=== PATIENT | female | born 1955 | race Caucasian/White ===

== ENCOUNTER 2016-06-22 01:53 | Inpatient (IN) | payer OTHER ==
[~2016-06-22] VITALS: Ht 170.2 cm; Wt 74.8 kg
[~2016-06-22 01:53] MED LIST: OMEPRAZOLE40 M1 PO
--- NOTE | 2016-06-22 14:22 | Admission Core Measures ---
Admission Meds I reviewed the following Meds: Current Medications Sig/Avery Start time Last Medication Dose Stop Time Status Admin Acetaminophen 975 MG ONCE 06/22 NR (Tylenol) 06/22 2358 Cefazolin Sodium 2,000 MG ONCE 06/22 NR (Kefzol-Ancef Inj) 06/22 2358 Oxycodone HCl 10 MG ONCE 06/22 NR (Roxicodone) 06/22 2358 Acute Coronary Syndrome Inclusion Criteria ACS Diagnosis No Inpatient Core Measures LDL Reminder: If No, please order W/I first 24hr of stay Congestive Heart Failure Inclusion Criteria CHF Diagnosis No Cerebrovascular accident Inclusion Criteria CVA/TIA Diagnosis No Inpatient Core Measures Bedside Swallow Eval Reminder: If BSE failed, place ST order Antithrombotic Reminder: Order Antithrombotic Medication by end of day 2 Antithrombotic Reminder: Document Reason Antithrombotic Not ordered by end of day 2 AFIB/Flutter Reminder: If Present, add to problem list AFIB/Flutter Reminder: Order Anticoag Medication for pts with AFIB/Flutter Atherosclerosis Reminder: If Present, add to problem list LDL Reminder: If No, please order W/I first 24hr of stay PT Order Reminder: If No, please order Venous thromboembolism Inpatient Core Measures VTE Risk Factors: Age > 40, Surgery No [facility] VTE prophylaxis d/t No contraindications No VTE Pharm Prophylaxis d/t No contraindications Inclusion Criteria - Per Current guidelines, there needs to be overlap - treatment for the first 5 days of Warfarin therapy. - Parenteral Anticoagulation (IV or SC) needs to be - given along with Warfarin therapy. VTE Diagnosis No VTE Type NONE VTE Confirmed by (Test) NONE Problem List As ranked by this Provider includes Assessment & Plan 1. Status post total replacement of right hip HOME MEDS Home Med List Omeprazole 40 MG CAPSULE.DR Hardy CAP PO EVERY OTHER GERD (Reported)
[2016-06-22] MEDS ORDERED: ASPIRIN EC325 M2 PO (14:34)
[2016-06-22] MEDS ORDERED: DILAUDID2 M1 PO (14:34)
[2016-06-22] MEDS ORDERED: MS CONTIN15 M2 PO (14:34)
[2016-06-22] MEDS ORDERED: COLACE100 M1 PO (14:34)
[2016-06-22] MEDS ORDERED: MIRALAX17 G1 PO (14:34)
--- NOTE | 2016-06-22 14:40 | Patient Discharge Instructions ---
Discharge Instructions General Discharge Information You were seen/treated for: Right hip DJD/osteoarthritis You had these procedures: Revision of right total hip replacement Watch for these problems: Fever greater than 101, excessive drainage from the wound, and inability to bear weight on the operative side Call Surgeon to remove: Susana Do not soak the wound: Yes Daily wet to dry dressings: No No bath, but you may shower: Yes Other wound care: Dry dressing change once daily starting postoperative day #2. You may shower as desired. No baths. No ointments of any kind. Ice as needed for comfort. Diet Continue normal diet: Yes Recommended Diet: Regular Activity Full Activity/No Limits: No Activity Self Limited: Yes Pounds, do NOT lift more than: 5 Activity Limited to: Weight bear as tolerated Other activity limits: Avoid strenuous activity. You may ambulate as desired with rolling walker and progressed per PT recommendations. No driving while using narcotics and until cleared by M.D. Acute Coronary Syndrome Inclusion Criteria At DC or during hospital stay patient has or had the following: ACS DIAGNOSIS No Discharge Core Measures Meds if any: Prescribed or Continued at Discharge Meds if any: NOT Prescribed or Continued at Discharge Congestive Heart Failure Inclusion Criteria At DC or during hospital stay patient has or had the following: CHF DIAGNOSIS No Discharge Core Measures Meds if any: Prescribed or Continued at Discharge Meds if any: NOT Prescribed or Continued at Discharge Cerebrovascular accident Inclusion Criteria At DC or during hospital stay patient has or had the following: CVA/TIA Diagnosis No Discharge Core Measures Meds if any: Prescribed or Continued at Discharge Meds if any: NOT Prescribed or Continued at Discharge Venous thromboembolism Inclusion Criteria VTE Diagnosis No VTE Type NONE VTE Confirmed by (Test) NONE Discharge Core Measures - Per Current guidelines, there needs to be overlap - treatment for the first 5 days of Warfarin therapy. - If discharged on Warfarin prior to 5 days of - overlap therapy, the patient will need to be - assessed for post discharge needs including - *Post discharge parental anticoagulation - *Warfarin and/or parental anticoagulation education - *Follow up date to check INR post discharge At least 5 days overlap therapy as Inpatient No Meds if any: Prescribed or Continued at Discharge Note: Overlap Therapy is Warfarin and Anticoagulant Meds if any: NOT Prescribed or Continued at Discharge
--- NOTE | 2016-06-22 14:45 | Surg Short-stay <48hrs Dis Sum ---
Visit Information Visit Dates Admission Date: 06/22/16 Discharge Date: 06/24/16 Surgical Short Stay DC Summary Admission Diagnosis: Right hip DJD/osteoarthritis Final Diagnosis: Same Procedure(s): 06/22/2016 right revision total hip replacement Summary/Significant Findings: Patient was admitted to [facility] for elective surgery on 06/22/2016 and underwent revision right total hip replacement. The patient tolerated the procedure well, without complications. The postoperative course remained uneventful. Pain was well controlled with oral pain medication, tolerated a regular diet, and voiding without difficulty. The patient was evaluated by physical therapy during admission, was deemed stable from a medical standpoint, and was discharged. Condition at Discharge: Stable Discharge Disposition: home health services Discharge instructions provided to patient/family: Yes Post discharge follow-up plan: Incision: Dry dressing. May shower. No baths. No ointments of any kind. Ice as needed. Bowel regimen: Colace and or MiraLAX Weight-bearing as tolerated Follow-up with Dr. Barragan in 6 weeks. Call office for fevers greater than 101.5, excessive drainage or inability to bear weight on operative extremity. Visiting nurse will remove donny.
--- NOTE | 2016-06-22 16:59 | Operative Report ---
Operative/Inv Procedure Report Surgery Date: 06/22/16 Name of Procedure: Right total hip revision Pre-Operative Diagnosis: Chronic instability right hip Post-Operative Diagnosis: Same Estimated Blood Loss: 500 Surgeon/Maintenance Craftsman: OTTO ORTIZ,PEPE Moody Anesthesia: block Operative/Procedure Note Note: Description of Procedure: The patient was taken to the operating room and positively identified. After induction of spinal anesthesia and administration of appropriate pre-operative antibiotics, the patient was positioned supine on the operating room table and all bony prominences were well padded. After performing a surgical timeout, the right lower extremity was prepped and draped in the usual sterile fashion. A direct anterior approach was made to the right hip. The incision was carried sharply through superficial soft tissues to the level of the fascia. Meticulous hemostasis was maintained with Bovie electocautery. The fascia over the tensor fascia rhonda muscle was opened sharply and the interval between the TFL and the sartorius was entered bluntly taking care to stay lateral to the lateral femoral cutaneous nerve. Retractors were placed around the femoral neck and the pericapsular fat was identified. The ascending branches of the lateral femoral circumflex vessels were identified and carefully coagulated. The pericapsular fat and anterior capsule were then resected. The femoral neck was exposed as was the acetabular rim. The femoral head was then disimpacted from the trunnion. The dual mobility polyethylene liner was immediately noted to be posterior to the ruptured posterior capsule and was easily retrieved. Retained Ethibond suture was removed. The higher rim of the acetabular component was then exposed. The acetabular component was noted to be quite anteverted. Utilizing the appropriate La Fontaine instrument the MDM metal liner was removed. A single dome screw was also removed. Utilizing the [employer] motorized acetabular component removal system, the acetabulum was removed with a minimum of bony damage. The acetabular bed was then irrigated with sterile saline. We sequentially reamed to accept a 60 mm La Fontaine Trident tritanium hemispherical shell. This was impacted into place in the appropriate position. 3 screws were used for supplemental fixation. It was then fit with a 36 mm 0 eccentric X3 insert. The hip was then trialed with 36 millimeter +8 head. This yielded excellent stability and appropriate leg lengths. The trial head was removed and a new [employer] 36 mm +8 Oxinium head was impacted. The articular space was then irrigated with sterile saline. The periarticular soft tissues were infilitrated with Marcaine. The fascial layer was closed with interrupted #1 vicryl suture and the skin was re-approximated with interrupted 2 -0 vicryl. The skin was closed with a running 3-0 V-Lock suture. Steri-strips and a sterile dressing were applied. The patient was awakened and taken to the recovery room in satisfactory condition.
--- NOTE | 2016-06-22 17:35 | RADIOLOGY REPORT ---
EXAMINATION: XR HIP, RIGHT CLINICAL INFORMATION: Status post total right hip arthroplasty COMPARISON: None TECHNIQUE: Two views of the right hip. FINDINGS: There is a new total right hip arthroplasty. The femoral head component articulates appropriately with the acetabular component. No periprosthetic lucency or fracture. Postoperative soft tissue gas is present. The visualized right hemipelvis is intact. IMPRESSION: Normal postoperative appearance of the right total hip prosthesis.
--- NOTE | 2016-06-22 18:40 | PN- Orthopedic ---
Subjective Subjective: POSTOP CHECK pain controlled, spinal anesthesia still on board, no cp/sob/n/v Objective Vital Signs and I&Os VS: 160/88 HR 86 T98 Physical Exam: GEN; NAD CARD: S1S2 RRR PULM: CTAB ABD: soft nt EXT: limited exam due to spinal anesthesia. dressing c/d/i. palp pedal pulses bl Assessment/Plan Assessment/Plan POD0 sp revision R THR, stable with spinal anesthesia still effective. PLAN: recheck later tonight once anesthesia worn off prn pain meds reg diet am labs ASA BID Core Measures/Miscellaneous Venous Thromboembolism VTE Risk Factors: Age > 40, Surgery VTE Contraindications: No Contraindications VTE Diagnosis: No VTE Type: NONE VTE Confirmed by (Test): NONE Beta Abdi Is Beta Abdi a Home Med? No Antibiotics Is Patient on Antibiotics? Yes If Yes: prophylaxis
[2016-06-22 18:53] VITALS: BP 124/64
--- NOTE | 2016-06-22 20:21 | NUR ---
PT ADMITTED FROM PACU S/P TOTAL RIGHT HIP REVISION. ORIENTED TO ROOM, CALL BEEL, AND STAFF. ALERT AND ORIENTED X 3, RA. VSS. DRESSING CDI TO RIGHT HIP. TEDS AND ALPS IN PLACE. FLUIDS RUNNING. LCTA. DENIES PAIN. INCENTIVE SPIROMETER AT BEDSIDE. DENIES PAIN AT THIS TIME. NO URGE TO VOID AT THIE TIME. WILL CONTINUE TO MONITOR.
[2016-06-22 20:38] VITALS: BP 112/60
[2016-06-22 22:31] VITALS: BP 108/60
--- NOTE | 2016-06-22 23:32 | NUR ---
pt voided 400 ml.
[2016-06-23 00:02] VITALS: BP 104/60
[2016-06-23 05:00] VITALS: BP 108/70
[2016-06-23 08:55] LABS: ABSOLUTE BASOPHIL COUNT 0 /CUMM (0.0-0.2); ABSOLUTE EOSINOPHIL COUNT 0 /CUMM (0.0-0.7); ABSOLUTE GRANULOCYTE CT 7.9 /CUMM (1.4-6.5); ABSOLUTE LYMPH COUNT 1.9 /CUMM (1.2-3.4); ABSOLUTE MONOCYTE COUNT 0.8 /CUMM (0.10-0.60); BASOPHIL % 0.4 % (0.0-2.0); EOSINOPHIL % 0.1 % (0-5); HEMATOCRIT 34.5 % (37-47); MEAN CORPUSCULAR HGB 33.3 PG (27.0-31.0); MEAN CORPUSCULAR HGB CONC 33.9 G/DL (33.0-37.0); MEAN CORPUSCULAR VOLUME 98.1 FL (81.0-99.0); MEAN PLATELET VOLUME 8.6 FL (7.4-10.4); PLATELET COUNT 198 /CUMM (130-400); RBC DISTRIBUTION WIDTH 14.1 % (11.5-14.5); RED BLOOD CELL CT 3.52 /CUMM (4.20-5.40); WHITE BLOOD CELL COUNT 10.7 /CUMM (4.8-10.8)
[2016-06-23 09:17] VITALS: BP 118/62
--- NOTE | 2016-06-23 09:17 | PN- Orthopedic ---
Subjective Subjective: Pain is 1 or 2 out of 10 right hip. No other complaints. She has yet to get out of bed. She has a good appetite, no chest pain nausea vomiting fever or flulike illness Objective Vital Signs and I&Os Vital Signs Date Time Temp Pulse Resp B/P B/P Pulse O2 O2 Flow FiO2 Mean Ox Delivery Rate 06/23 916 97.9 78 20 118/62 98 06/23 0500 98.0 73 20 108/70 95 Room Air 06/23 0002 97.9 53 18 104/60 93 Room Air 06/22 2231 97.8 66 20 108/60 94 Room Air 06/22 2038 97.9 72 20 112/60 95 Room Air 06/22 1853 97.7 60 20 124/64 95 Nasal Cannula Intake & Output 06/23 0800 06/23 0000 06/22 1600 06/22 0806/22 0000 Intake Total 500 420 Output Total 500 400 Balance 0 20 Intake, IV 500 300 Intake, Oral 120 Number 0 Bowel Movements Output, Urine 500 400 Patient 165 lb Weight Physical Exam: Well-developed well-nourished no apparent distress. HEENT: Atraumatic, extraocular motion intact Neck: Supple, no lymphadenopathy Respiratory: No respiratory distress Extremities: No edema RIGHT lower extremity hip dressing in place, Dressing clean dry and intact with minimal bloody staining Mild thigh edema No signs of infection. No shortening or rotation Hip range of motion is limited and without unexpected pain Neurovascularly intact distally Bilateral calves are supple, nontender. Neuro: Alert and oriented x3 Psych: Mood affect normal, normal memory normal judgment. Skin: Warm and dry, no rash on exposed skin Results Last 48 Hours of Labs: Laboratory Tests 06/23 716 Chemistry Sodium Pending Potassium Pending Chloride Pending Carbon Dioxide Pending Anion Gap Pending BUN Pending Creatinine Pending BUN/Creatinine Ratio Pending Hematology CBC w Diff NO MAN DIFF REQ WBC (4.8 - 10.8 /CUMM) 10.7 RBC (4.20 - 5.40 /CUMM) 3.52 L Hgb (12.0 - 16.0 G/DL) 11.7 L Hct (37 - 47 %) 34.5 L MCV (81.0 - 99.0 FL) 98.1 MCH (27.0 - 31.0 PG) 33.3 H RDW (11.5 - 14.5 %) 14.1 Plt Count (130 - 400 /CUMM) 198 MPV (7.4 - 10.4 FL) 8.6 Gran % (42.2 - 75.2 %) 74.0 Lymphocytes % (20.5 - 51.1 %) 17.7 L Monocytes % (1.7 - 9.3 %) 7.8 Eosinophils % (0 - 5 %) 0.1 Basophils % (0.0 - 2.0 %) 0.4 Absolute Granulocytes (1.4 - 6.5 /CUMM) 7.9 H Absolute Lymphocytes (1.2 - 3.4 /CUMM) 1.9 Absolute Monocytes (0.10 - 0.60 /CUMM) 0.8 H Absolute Eosinophils (0.0 - 0.7 /CUMM) 0 Absolute Basophils (0.0 - 0.2 /CUMM) 0 PUBS MCHC (33.0 - 37.0 G/DL) 33.9 Assessment/Plan Assessment/Plan Postoperative day #1 status post right total hip arthroplasty revision, second revision, anterior approach Orthopedically patient is stable Continue pain regimen Follow labs this morning GI prophylaxis Aspirin for DVT prophylaxis Alps for DVT prophylaxis Perioperative antibiotics DC IV fluids Out of bed with physical therapy weight-bear as tolerated right lower extremity Discussed the possibility of patient being discharged home today, she would like to see how she does today and Plan for discharge home tomorrow with services Core Measures/Miscellaneous Venous Thromboembolism VTE Risk Factors: Age > 40, Surgery VTE Contraindications: No Contraindications VTE Diagnosis: No VTE Type: NONE VTE Confirmed by (Test): NONE Beta Abdi Is Beta Abdi a Home Med? No Antibiotics Is Patient on Antibiotics? Yes If Yes: prophylaxis
[2016-06-23 12:05] VITALS: BP 120/66
[2016-06-23 14:40] VITALS: BP 120/62; BP 120/70
[2016-06-23 20:50] VITALS: BP 130/84
[2016-06-24 07:01] VITALS: BP 110/70
--- NOTE | 2016-06-24 07:20 | PN- Orthopedic ---
Subjective Subjective: POC S/P RIGHT CHRABEL REVISON COMFORTABLE THIS AM NO MAJOR COMPLAINTS Objective Vital Signs and I&Os Vital Signs Date Time Temp Pulse Resp B/P B/P Pulse O2 O2 Flow FiO2 Mean Ox Delivery Rate 06/24 0701 98.9 72 20 110/70 98 Room Air 06/23 2050 98.9 76 18 130/84 99 Room Air 06/23 1440 99.0 69 18 120/62 95 06/23 1205 98.7 77 20 120/66 98 06/23 0924 Room Air Room Air 06/23 0917 97.9 78 20 118/62 98 Intake & Output 06/24 0800 06/24 0000 06/23 1600 06/23 0800 06/23 0000 06/22 1600 Intake Total 800 600 500 420 Output Total 300 250 500 400 Balance -300 800 350 0 20 Intake, IV 500 300 Intake, Oral 800 600 120 Number 0 Bowel Movements Output, Urine 300 250 500 400 Patient 165 lb Weight Physical Exam: CV: RRR LUNGS: CLEAR ABD: SOFT, +BS EXT: DRSG CHANGED, WOUND C/D/I NO CALF TENDERNESS BILAT DISTAL CMS INTACT Assessment/Plan Assessment/Plan ORTHO STABLE PLAN HOME TODAY F/U DR MENJIVAR 6WEEKS CONT CURRENT REGIME Core Measures/Miscellaneous Venous Thromboembolism VTE Risk Factors: Age > 40, Surgery VTE Contraindications: No Contraindications VTE Diagnosis: No VTE Type: NONE VTE Confirmed by (Test): NONE Beta Abdi Is Beta Abdi a Home Med? No Antibiotics Is Patient on Antibiotics? Yes If Yes: prophylaxis
== END 2016-06-24 12:00 | disposition home health service (06) | DRG 468 ==
LOC: SDA 01:53 → ENRESERV 17:17 → 2NA 18:30
PROVIDERS: Physician Assistant Surgical; ADMIT Orthopaedic Surgery
PROC: 0SRA0JA Replacement of Right Hip Joint, Acetabular Surface with Synthetic Substitute, Uncemented, Open Approach (ICD-10-PCS; principal; 2016-06-22)
PROC: 0SPA0JZ Removal of Synthetic Substitute from Right Hip Joint, Acetabular Surface, Open Approach (ICD-10-PCS; principal; 2016-06-22)
PROC: 0SP909Z Removal of Liner from Right Hip Joint, Open Approach (ICD-10-PCS; principal; 2016-06-22)
PROC: 0SUA09Z Supplement Right Hip Joint, Acetabular Surface with Liner, Open Approach (ICD-10-PCS; principal; 2016-06-22)
DX: T84.020A Dislocation of internal right hip prosthesis, initial encounter (principal); K21.9 Gastro-esophageal reflux disease without esophagitis; M25.351 Other instability, right hip; X58.XXXA Exposure to other specified factors, initial encounter; E78.00 Pure hypercholesterolemia, unspecified
CPT/HCPCS: 2NAP; 2NASP; 73502-RT; 82436; 97110-GO; 97116-GO; 97161-GP; 97530-GO; J0690; J0735; J2405; J7042

== ENCOUNTER 2016-07-22 15:28 | Observation (INO) | payer OTHER ==
[~2016-07-22] VITALS: Ht 170.2 cm; Wt 72.6 kg
[~2016-07-22 15:28] MED LIST changes: +ASPIRIN EC325 M2 PO; +COLACE100 M1 PO; +DILAUDID2 M1 PO; +MIRALAX17 G1 PO; +MS CONTIN15 M2 PO
--- NOTE | 2016-07-22 15:37 | ED UPPER/LOWER EXTREMITY COMPL ---
History of Present Illness General Chief Complaint: Lower Extremity Injury Stated Complaint: R HIP DISLOCATION Source: patient, EMS Exam Limitations: no limitations Vital Signs & Intake/Output Vital Signs & Intake/Output Vital Signs Date Time Temp Pulse Resp B/P B/P Pulse O2 O2 Flow FiO2 Mean Ox Delivery Rate 07/22 1720 98.5 80 20 169/89 97 Room Air 07/22 1713 98 Room Air 07/22 1531 97.2 72 20 181/86 97 Room Air Allergies Coded Allergies: No Known Allergies (06/18/16) Reconcile Medications Hydromorphone HCl (Dilaudid) 2 MG TABLET 1-2 TAB PO Q4-6 PRN PAIN Omeprazole (Unknown Strength) TABLET.DR 10 MG PO DAILY GI (Reported) Triage Nurses Notes Reviewed? yes Onset: Abrupt Duration: hour(s): (1) Timing: single episode today Severity: moderate, severe Pain/Injury Location: Right: Hip. Method of Injury: BENDING OVER Modifying Factors: Worsens With: movement. Associated Symptoms: swelling HPI: 61 year old female presents via [facility] from [place] after dislocating her right hip. She was volunteering at a [employer] when she bent over and felt it pop out. She did not fall to the ground. S/p revision of right hip x 3 but this is the first dislocation of this hip. Past History Travel History Traveled to [place] past 21 day No Medical History Any Pertinent Medical History? 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 No Review of Systems Review of Systems Constitutional: Denies: chills, fever. EENTM: Reports: no symptoms. Respiratory: Denies: cough, short of breath. Cardiovascular: Denies: chest pain. Gastrointestinal/Abdominal: Reports: no symptoms. Genitourinary: Reports: no symptoms. Musculoskeletal: Reports: joint pain, joint swelling. Denies: muscle pain, muscle stiffness. Skin: Reports: no symptoms. Neurological/Psychological: Reports: anxiety, numbness, tingling. Denies: weakness. Hematologic/Endocrine: Denies: bruising, bleeding, polyuria, polydipsia. Immunological: Reports: no symptoms. All Other Systems: Reviewed and Negative Physical Exam Physical Exam General Appearance: well developed/nourished, alert, awake, anxious, mild distress Head: atraumatic Eyes: Bilateral: PERRL, EOMI. Ears, Nose, Throat: normal pharynx, normal ENT inspection, hearing grossly normal Neck: normal inspection, supple Cardiovascular/Respiratory: regular rate/rhythm Peripheral Pulses: 2+ radial (R), 2+ radial (L), 2+ dorsalis pedis (R), 2+ dorsalis pedis (L) Back: normal inspection Leg Left: normal range of motion, normal inspection Leg Right: normal range of motion, normal inspection Hip Left: normal range of motion, normal inspection Hip Right: RIGHT HIP PAIN/DEFORMITY Knee Left: normal range of motion, normal inspection Knee Right: normal range of motion, normal inspection Foot Left: normal inspection, normal range of motion Foot Right: normal inspection, normal range of motion Skin: intact, normal color, warm/dry Lymphatic: no anterior cervical hortencia Progress Differential Diagnosis: RIGHT HIP DISLOCATION, HIP FRACTURE Plan of Care: Orders Procedure Date/time Status Nothing by Mouth 07/[address] in observation 07/22 1759 Active ED Holding Orders 07/22 1759 Active Vital Signs 07/22 1759 Active Code Status 07/22 1759 Active PARTIAL THROMBOPLASTIN TIME 07/22 1536 Complete PROTHROMBIN TIME 07/22 1536 Complete COMPREHENSIVE METABOLIC PANEL 07/22 1536 Complete CBC WITHOUT DIFFERENTIAL 07/22 1536 Complete EKG 07/22 1536 Active TYPE & SCREEN (NOT X-MATCH) 07/22 1536 Active Laboratory Tests 07/22/16 1549: Anion Gap 13, Estimated GFR > 60, BUN/Creatinine Ratio 20.0, Glucose 98, Calcium 9.9, Total Bilirubin 0.6, AST 23, ALT 37, Alkaline Phosphatase 90, Total Protein 7.8, Albumin 4.5, Globulin 3.3, Albumin/Globulin Ratio 1.4, PT 10.7, INR 1.02, APTT 29, CBC w Diff NO MAN DIFF REQ, RBC 4.07 L, MCV 96.5, MCH 32.0 H, RDW 14.4, MPV 8.2, Gran % 68.8, Lymphocytes % 21.7, Monocytes % 7.2, Eosinophils % 2.0, Basophils % 0.3, Absolute Granulocytes 4.8, Absolute Lymphocytes 1.5, Absolute Monocytes 0.5, Absolute Eosinophils 0.1, Absolute Basophils 0, PUBS MCHC 33.1 Diagnostic Imaging: Viewed by Me: Radiology Read. Discussed w/RAD: Radiology Read. Radiology Impression: PATIENT: CANDIDO BURGESS PRESENT AGE: 61 PATIENT ACCOUNT NO: [id number] : 56 LOCATION: [facility] ORDERING PHYSICIAN: JUDY KWON MD SERVICE DATE: 07/22/16 EXAM TYPE: RAD - XRY -HIP 2-3 VIEWS, RIGHT EXAMINATION: XR HIP, RIGHT CLINICAL INFORMATION: Dislocated total hip replacement COMPARISON: Right hip 06/22/2016 TECHNIQUE: Two views of the right hip. FINDINGS: Patient has a right total hip replacement. The hip is dislocated. The femoral component is dislocated superior to the acetabular component. There is no fracture. IMPRESSION: Dislocated right total hip replacement. DICTATED BY: LINWOOD RODRIGEZ MD DATE/TIME DICTATED:07/22/161725 POLICE SUPERINTENDENT:CARMEN DATE/TIME TRANSCRIBED:07/22/161725 CONFIDENTIAL, DO NOT COPY WITHOUT APPROPRIATE AUTHORIZATION. <Electronically signed in Other Vendor System> SIGNED BY: LINWOOD RODRIGEZ MD 07/22/16 173 Departure Departure Time of Disposition: 1758 Disposition: STILL A PATIENT Condition: Stable Clinical Impression Primary Impression: Hip dislocation, right Referrals: QIAN CROWE (PCP/Family) Departure Forms: Customer Survey General Discharge Information Prescriptions: Current Visit Scripts Hydromorphone HCl (Dilaudid) 1-2 TAB PO Q4-6 PRN PAIN #20 Observation Note Spoke With: PEPE MENJIVAR MD Physician Advisor Notified: ADÁN KOCH DO Place Patient In: Non-ED OBS Care Area Rationale for Observation: My rational for observation is as follows [NPO, IV PAIN CONTROL, SURGICAL CLOSED REDUCTION OF RIGHT HIP IN OR].
--- NOTE | 2016-07-22 15:47 | NUR ---
61 YEAR OLD FEMALE TO ER VIA AMBULANCE FROM WORK, STATES THAT SHE HAD R HIP REVISION 1 MONTH AGO AND SHE WAS BENDING OVER COUNTER WHEN SHE FELT HER HIP POP OUT. PT CALLED DR MENJIVAR'S OFFICE AND THEY TOLD HER IF SHE WANTED TO BE SEEN BY HIM SHE WOULD HAVE TO TAKE AMBULANCE TO [facility] DR KWON AT BEDSIDE WHO STATES THAT PER SURGICAL PA , DEPENDING ON LAST MEAL HE MIGHT HAVE TO COME TO ER TO POP HIM BACK IN, AND NOT TO OR. PT SATTES THAT SHE LAST ATE SALAD AT 1400.
[2016-07-22 16:00] LABS: ABSOLUTE BASOPHIL COUNT 0 /CUMM (0.0-0.2); ABSOLUTE EOSINOPHIL COUNT 0.1 /CUMM (0.0-0.7); ABSOLUTE GRANULOCYTE CT 4.8 /CUMM (1.4-6.5); ABSOLUTE LYMPH COUNT 1.5 /CUMM (1.2-3.4); ABSOLUTE MONOCYTE COUNT 0.5 /CUMM (0.10-0.60); BASOPHIL % 0.3 % (0.0-2.0); GRANULOCYTE % 68.8 % (42.2-75.2); HEMATOCRIT 39.3 % (37-47); MEAN CORPUSCULAR HGB CONC 33.1 G/DL (33.0-37.0); MEAN CORPUSCULAR VOLUME 96.5 FL (81.0-99.0); MEAN PLATELET VOLUME 8.2 FL (7.4-10.4); PLATELET COUNT 251 /CUMM (130-400); RBC DISTRIBUTION WIDTH 14.4 % (11.5-14.5); RED BLOOD CELL CT 4.07 /CUMM (4.20-5.40); WHITE BLOOD CELL COUNT 6.9 /CUMM (4.8-10.8)
[2016-07-22 16:07] LABS: PT 10.7 SEC (9.4-12.5); PTT 29 SEC (25-37)
--- NOTE | 2016-07-22 16:16 | Cons- Orthopedic ---
General Information and HPI Consulting Request Date of Consult: 07/22/16 Requested By: ED Reason for Consult: right hip pain History of Present Illness: 61F to ED co right hip pain, sp revision R CHARBEL by Dr. Barragan on 06/22/16. Patient feels she has dislocated her hip. She was leaning over her counter, and felt her hip "pop" out. Has been doing well since recent durgery. No others complaints Of note, initial R CHARBEL 11/2014, dislocation 07/2015 and 10/2015, revision 11/2015, dislocation 04/2016 and 05/2016, revision w Baltazarotti 06/2016, and dislocation today. Allergies/Medications Allergies: Coded Allergies: No Known Allergies (06/18/16) Home Med List: Aspirin (Ecotrin*) 325 MG TABLET. 1 TAB PO BID DVT PROPHYLAXIS Omeprazole (Unknown Strength) TABLET. 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 Surgical History Pertinent Surgical History: none (multiple revisions), hip replacement, R CHARBEL sp multiple dislocations and multiple revisions Psychosocial History ETOH Use: heavy use Illicit Drug Use: denies illicit drug use Exam & Diagnostic Data Vital Signs and I&O Vital Signs Date Time Temp Pulse Resp B/P B/P Pulse O2 O2 Flow FiO2 Mean Ox Delivery Rate 07/22 1531 97.2 72 20 181/86 97 Room Air Intake & Output 07/22 1600 07/22 0800 07/22 0000 07/21 1600 07/21 0800 07/21 0000 Intake Total 0 Output Total Balance 0 Intake, Oral 0 Patient 160 lb Weight Physical Exam: GEN: NAD CARD: s1s2 RRR PULM: CTAB EXT: r hip ttp, +pedal pulses, intact sensate, skin intact, lying on side and did not move position due to pain Last 24 Hours of Labs: Laboratory Tests 07/22 1549 Chemistry Sodium (137 - 145 mmol/L) 140 Potassium (3.5 - 5.1 mmol/L) 3.7 Chloride (98 - 107 mmol/L) 103 Carbon Dioxide (22 - 30 mmol/L) 24 Anion Gap (5 - 16) 13 BUN (7 - 17 mg/dL) 16 Creatinine (0.5 - 1.0 mg/dL) 0.8 Estimated GFR (>60 ml/min) > 60 BUN/Creatinine Ratio (7 - 25 %) 20.0 Glucose (65 - 99 mg/dL) 98 Calcium (8.4 - 10.2 mg/dL) 9.9 Total Bilirubin (0.2 - 1.3 mg/dL) 0.6 AST (14 - 36 U/L) 23 ALT (9 - 52 U/L) 37 Alkaline Phosphatase (<127 U/L) 90 Total Protein (6.3 - 8.2 g/dL) 7.8 Albumin (3.5 - 5.0 g/dL) 4.5 Globulin (1.9 - 4.2 gm/dL) 3.3 Albumin/Globulin Ratio (1.1 - 2.2 %) 1.4 Coagulation PT (9.4 - 12.5 SEC) 10.7 INR (0.90 - 1.19) 1.02 APTT (25 - 37 SEC) 29 Hematology CBC w Diff NO MAN DIFF REQ WBC (4.8 - 10.8 /CUMM) 6.9 RBC (4.20 - 5.40 /CUMM) 4.07 L Hgb (12.0 - 16.0 G/DL) 13.0 Hct (37 - 47 %) 39.3 MCV (81.0 - 99.0 FL) 96.5 MCH (27.0 - 31.0 PG) 32.0 H RDW (11.5 - 14.5 %) 14.4 Plt Count (130 - 400 /CUMM) 251 MPV (7.4 - 10.4 FL) 8.2 Gran % (42.2 - 75.2 %) 68.8 Lymphocytes % (20.5 - 51.1 %) 21.7 Monocytes % (1.7 - 9.3 %) 7.2 Eosinophils % (0 - 5 %) 2.0 Basophils % (0.0 - 2.0 %) 0.3 Absolute Granulocytes (1.4 - 6.5 /CUMM) 4.8 Absolute Lymphocytes (1.2 - 3.4 /CUMM) 1.5 Absolute Monocytes (0.10 - 0.60 /CUMM) 0.5 Absolute Eosinophils (0.0 - 0.7 /CUMM) 0.1 Absolute Basophils (0.0 - 0.2 /CUMM) 0 PUBS MCHC (33.0 - 37.0 G/DL) 33.1 Imaging Results: R hip xray: IMPRESSION: Dislocated right total hip replacement. Assessment/Plan Assessment/Plan 61F R with Dislocated right total hip replacement, otherwise stable, last meal at 1pm. P: OR reduction in 8 hrs due to last meal. NPO, IVF, prn pain meds. DW Dr. Barragan Consult Acknowledgment - Thank you for your consult request.
--- NOTE | 2016-07-22 16:20 | NUR ---
PT MEDICATED WITH 4 MG IV PER ORDER ,SURGICAL PA AT BEDSIDE
[2016-07-22] MEDS ORDERED: OMEPRAZOLE20 M3 PO (16:25)
--- NOTE | 2016-07-22 17:06 | NUR ---
PT RETURNED FROM RAD
--- NOTE | 2016-07-22 17:10 | NUR ---
PT ATTEMPTING TO USE BEDPAN AT THIS TIME.
--- NOTE | 2016-07-22 17:31 | RADIOLOGY REPORT ---
EXAMINATION: XR HIP, RIGHT CLINICAL INFORMATION: Dislocated total hip replacement COMPARISON: Right hip 06/22/2016 TECHNIQUE: Two views of the right hip. FINDINGS: Patient has a right total hip replacement. The hip is dislocated. The femoral component is dislocated superior to the acetabular component. There is no fracture. IMPRESSION: Dislocated right total hip replacement.
--- NOTE | 2016-07-22 17:50 | NUR ---
PT MEDICATED WITH VALIUM PER ORDER, RESTING ON STRETCHER WITH LIGHTS DIMMED, NSR ON MONITOR. PT AWARE THAT WE ARE WAITING TO HERE FROM SURGICAL PA ABOUT PLAN OF CARE
--- NOTE | 2016-07-22 18:09 | Admission Core Measures ---
Admission Lab Results I reviewed the following labs: Laboratory Tests 07/22 1549 Chemistry Sodium (137 - 145 mmol/L) 140 Potassium (3.5 - 5.1 mmol/L) 3.7 Chloride (98 - 107 mmol/L) 103 Carbon Dioxide (22 - 30 mmol/L) 24 Anion Gap (5 - 16) 13 BUN (7 - 17 mg/dL) 16 Creatinine (0.5 - 1.0 mg/dL) 0.8 Estimated GFR (>60 ml/min) > 60 BUN/Creatinine Ratio (7 - 25 %) 20.0 Glucose (65 - 99 mg/dL) 98 Calcium (8.4 - 10.2 mg/dL) 9.9 Total Bilirubin (0.2 - 1.3 mg/dL) 0.6 AST (14 - 36 U/L) 23 ALT (9 - 52 U/L) 37 Alkaline Phosphatase (<127 U/L) 90 Total Protein (6.3 - 8.2 g/dL) 7.8 Albumin (3.5 - 5.0 g/dL) 4.5 Globulin (1.9 - 4.2 gm/dL) 3.3 Albumin/Globulin Ratio (1.1 - 2.2 %) 1.4 Coagulation PT (9.4 - 12.5 SEC) 10.7 INR (0.90 - 1.19) 1.02 APTT (25 - 37 SEC) 29 Hematology CBC w Diff NO MAN DIFF REQ WBC (4.8 - 10.8 /CUMM) 6.9 RBC (4.20 - 5.40 /CUMM) 4.07 L Hgb (12.0 - 16.0 G/DL) 13.0 Hct (37 - 47 %) 39.3 MCV (81.0 - 99.0 FL) 96.5 MCH (27.0 - 31.0 PG) 32.0 H RDW (11.5 - 14.5 %) 14.4 Plt Count (130 - 400 /CUMM) 251 MPV (7.4 - 10.4 FL) 8.2 Gran % (42.2 - 75.2 %) 68.8 Lymphocytes % (20.5 - 51.1 %) 21.7 Monocytes % (1.7 - 9.3 %) 7.2 Eosinophils % (0 - 5 %) 2.0 Basophils % (0.0 - 2.0 %) 0.3 Absolute Granulocytes (1.4 - 6.5 /CUMM) 4.8 Absolute Lymphocytes (1.2 - 3.4 /CUMM) 1.5 Absolute Monocytes (0.10 - 0.60 /CUMM) 0.5 Absolute Eosinophils (0.0 - 0.7 /CUMM) 0.1 Absolute Basophils (0.0 - 0.2 /CUMM) 0 PUBS MCHC (33.0 - 37.0 G/DL) 33.1 Admission Meds I reviewed the following Meds: Current Medications Sig/Avery Start time Last Medication Dose Stop Time Status Admin Dextrose/Sodium 1,000 ML CONTINOUS INFUSION 07/22 1800 UNVr Chloride (D5W-1/2 Normal Saline 1000ML) Morphine Sulfate 2 MG Q2P PRN 07/22 1800 UNVr (Morphine) Ondansetron HCl 4 MG Q8P PRN 07/22 1800 UNVr (Zofran) Acute Coronary Syndrome Inclusion Criteria ACS Diagnosis No Inpatient Core Measures LDL Reminder: If No, please order W/I first 24hr of stay Congestive Heart Failure Inclusion Criteria CHF Diagnosis No Cerebrovascular accident Inclusion Criteria CVA/TIA Diagnosis No Inpatient Core Measures Bedside Swallow Eval Reminder: If BSE failed, place ST order Antithrombotic Reminder: Order Antithrombotic Medication by end of day 2 Antithrombotic Reminder: Document Reason Antithrombotic Not ordered by end of day 2 AFIB/Flutter Reminder: If Present, add to problem list AFIB/Flutter Reminder: Order Anticoag Medication for pts with AFIB/Flutter Atherosclerosis Reminder: If Present, add to problem list LDL Reminder: If No, please order W/I first 24hr of stay PT Order Reminder: If No, please order Venous thromboembolism Inpatient Core Measures VTE Risk Factors: Surgery No [facility] VTE prophylaxis d/t No contraindications No VTE Pharm Prophylaxis d/t No contraindications Inclusion Criteria - Per Current guidelines, there needs to be overlap - treatment for the first 5 days of Warfarin therapy. - Parenteral Anticoagulation (IV or SC) needs to be - given along with Warfarin therapy. VTE Diagnosis No VTE Type NONE VTE Confirmed by (Test) NONE Problem List As ranked by this Provider includes Assessment & Plan 1. Hip dislocation, right 2. Status post total replacement of right hip HOME MEDS Home Med List Aspirin (Ecotrin*) 325 MG TABLET. 1 TAB PO BID DVT PROPHYLAXIS Omeprazole (Unknown Strength) TABLET.DR 0.5 TAB PO DAILY GI (Reported)
--- NOTE | 2016-07-22 19:20 | NUR ---
PER OR STAFF, BRING PT OVER AT 8:15PM.
--- NOTE | 2016-07-22 19:33 | NUR ---
PT MEDICATED WITH DILAUDID PER EMAR. DR KWON AT BEDSIDE.
[2016-07-22 22:04] VITALS: BP 130/74
--- NOTE | 2016-07-22 23:04 | PN- Orthopedic ---
Subjective Subjective: poc s/p closed reduction of right tomás dislocation comfortable no complaints lying in bed with abductor pillow Objective Vital Signs and I&Os Vital Signs Date Time Temp Pulse Resp B/P B/P Pulse O2 O2 Flow FiO2 Mean Ox Delivery Rate 07/22 2008 97.3 62 18 131/84 98 Room Air 07/22 1720 98.5 80 20 169/89 97 Room Air 07/22 1713 98 Room Air 07/22 1531 97.2 72 20 181/86 97 Room Air Intake & Output 07/22 0000 07/21 0000 Intake Total 0 Output Total Balance 0 Intake, Oral 0 Patient 160 lb Weight Physical Exam: cv: rrr lungs: clear abd: soft, +bs ext: right le distal cms intact good alignment Assessment/Plan Assessment/Plan s/p closed reduction right tomás dislocation due to multiple rigth tomás surgeries posterior capsule has become weak/deficient and puts her at greater risk of posterior hip dislocation plan oob with pt in am strict posterior hip precautions: abductor pillow raised toilet seat/commode hip flexion 90 degrees or less mechanical dvt prophylaxis only Core Measures/Miscellaneous Venous Thromboembolism VTE Risk Factors: Age > 40 VTE Contraindications: No Contraindications VTE Diagnosis: No VTE Type: NONE VTE Confirmed by (Test): NONE Beta Abdi Is Beta Abdi a Home Med? No Antibiotics Is Patient on Antibiotics? No
--- NOTE | 2016-07-23 00:44 | NUR ---
NURSING NOTE: LATE ENTRY. PT ARRIVED TO FLOOR AT 2204 ON 07/22/16 FROM PACU BY STRETCHER. PT A&OX3, AWAKE, RESPONDING APPROPRIATELY TO QUESTIONS. VSS, PT WEANED TO ROOM AIR, SATS 99%. NO DISTRESS NOTED. DENIES CP, +CMS, +PULSES. ABDUCTION PILLOW B/T LEGS. FLUIDS D/C PER SURGICAL PA. PT C/O PAIN 2/10 IN R HIP BUT DENIES NEED FOR PAIN MEDS. ICE PACK GIVEN. PT VOIDED 375 ML ON BEDPAN. PER SURGICAL PA PT CAN GET OOB TO BSC. BSC RAISED PER SURGICAL PA REQUEST. PT EVAL IN PLACE FOR AM. PT DENIES N/V. INFO PACKET GIVEN. PT SHOWN HOW TO USE CALL LIGHT SYSTEM. AWAIT FURTHER ORDERS FROM SURGICAL PA. WILL CONTINUE TO MONITOR.
[2016-07-23 07:15] VITALS: BP 170/96
--- NOTE | 2016-07-23 07:34 | PN- Orthopedic ---
Subjective Subjective: The patient was seen this morning. She complains of some mild right hip soreness but is otherwise comfortable. She has no complaints the current time. Objective Vital Signs and I&Os Vital Signs Date Time Temp Pulse Resp B/P B/P Pulse O2 O2 Flow FiO2 Mean Ox Delivery Rate 07/23 0715 98.0 70 20 170/96 98 Room Air 07/22 2204 98.1 61 18 130/74 99 Room Air 07/22 2009 97.3 62 18 131/84 98 Room Air 07/22 1720 98.5 80 20 169/89 97 Room Air 07/22 1713 98 Room Air 07/22 1531 97.2 72 20 181/86 97 Room Air Intake & Output 07/23 0800 07/23 0000 07/22 1600 07/22 0800 07/22 0000 07/21 1600 Intake Total 120 0 Output Total 400 375 Balance -400 -255 0 Intake, Oral 120 0 Output, Urine 400 375 Patient 160 lb 160 lb Weight Physical Exam: Gen.: Alert and in no obvious distress Skin: Warm and dry Extremities: Bilateral lower extremities are warm without calf tenderness or significant edema. Right hip is slightly edematous and tender to palpation but otherwise compartments remain soft. Assessment/Plan Assessment/Plan Assessment: 61-year-old female status post closed reduction of dislocated right total hip. Postoperative the patient is progressing as expected and her pain is under adequate control. Plan: Out of bed with physical therapy patient is weightbearing as tolerated however she should have posterior hip cautions Continue current pain regiment GI and DVT prophylaxis Discharge home later today if cleared by PT Core Measures/Miscellaneous Venous Thromboembolism VTE Risk Factors: Age > 40 VTE Contraindications: No Contraindications VTE Diagnosis: No VTE Type: NONE VTE Confirmed by (Test): NONE Beta Abdi Is Beta Abdi a Home Med? No Antibiotics Is Patient on Antibiotics? No
--- NOTE | 2016-07-23 08:07 | Surg Short-stay <48hrs Dis Sum ---
Visit Information Visit Dates Admission Date: 07/22/16 Discharge Date: 07/23/16 Surgical Short Stay DC Summary Admission Diagnosis: Dislocated right total hip arthroplasty Final Diagnosis: Same Procedure(s): Closed reduction and examination under anesthesia Summary/Significant Findings: The patient was admitted on 07/22/2016. She is brought to the operating theater where she underwent a closed reduction of a dislocated right total hip. Postoperatively the patient's pain was under adequate control and she worked with physical therapy. She was discharged with an uneventful hospital course. Condition at Discharge: Stable Discharge Disposition: home health services Discharge instructions provided to patient/family: Yes Post discharge follow-up plan: Call the office to be seen in 1 month
[2016-07-23] MEDS ORDERED: DILAUDID2 M1 PO (08:08)
--- NOTE | 2016-07-23 08:13 | Patient Discharge Instructions ---
Discharge Instructions General Discharge Information You were seen/treated for: Dislocated right total hip arthroplasty You had these procedures: Closed reduction and inspection under anesthesia Watch for these problems: Significantly increased pain or difficulty ambulating Special Instructions: Ambulate using a walker per physical therapy recommendations Posterior hip precautions Diet Continue normal diet: Yes Activity Activity Self Limited: Yes Other activity limits: Do not drive or operate heavy machinery until okay with your surgeon and off all pain medications Additional ACTIVITY Info: Posterior hip precautions Acute Coronary Syndrome Inclusion Criteria At DC or during hospital stay patient has or had the following: ACS DIAGNOSIS No Discharge Core Measures Meds if any: Prescribed or Continued at Discharge Meds if any: NOT Prescribed or Continued at Discharge Congestive Heart Failure Inclusion Criteria At DC or during hospital stay patient has or had the following: CHF DIAGNOSIS No Discharge Core Measures Meds if any: Prescribed or Continued at Discharge Meds if any: NOT Prescribed or Continued at Discharge Cerebrovascular accident Inclusion Criteria At DC or during hospital stay patient has or had the following: CVA/TIA Diagnosis No Discharge Core Measures Meds if any: Prescribed or Continued at Discharge Meds if any: NOT Prescribed or Continued at Discharge Venous thromboembolism Inclusion Criteria VTE Diagnosis No VTE Type NONE VTE Confirmed by (Test) NONE Discharge Core Measures - Per Current guidelines, there needs to be overlap - treatment for the first 5 days of Warfarin therapy. - If discharged on Warfarin prior to 5 days of - overlap therapy, the patient will need to be - assessed for post discharge needs including - *Post discharge parental anticoagulation - *Warfarin and/or parental anticoagulation education - *Follow up date to check INR post discharge At least 5 days overlap therapy as Inpatient No Meds if any: Prescribed or Continued at Discharge Note: Overlap Therapy is Warfarin and Anticoagulant Meds if any: NOT Prescribed or Continued at Discharge
[2016-07-23 09:55] VITALS: BP 148/78
--- NOTE | 2016-07-23 10:26 | RADIOLOGY REPORT ---
EXAMINATION: XR HIP, RIGHT. INTRAOPERATIVE FLUOROSCOPY. CLINICAL INFORMATION: Reduction of right hip dislocation. COMPARISON: Right hip films dated 07/22/2016. TECHNIQUE: Intraoperative fluoroscopy was provided in the operating room for right hip reduction. Single frontal spot view of the right hip was obtained and is archived in PACS. FLUOROSCOPY TIME: 55 seconds. FINDINGS: The femoral component has been relocated into the acetabular component. Anatomic alignment has been restored. No hardware failure or [place] bone fracture is seen on single image. IMPRESSION: [facility] of anatomic alignment status post right hip reduction.
== END 2016-07-23 10:38 | disposition home health service (06) ==
LOC: ERH 15:28 → ERHI 17:59 → ENRESERV 21:30 → ENTRNSPT 21:58 → 2NB 22:10 → ENPENDDIS 07-23 08:17 → CMPTRNSPT 07-23 08:27 → 2NB 07-23 10:38
PROVIDERS: Emergency Medicine; ADMIT Orthopaedic Surgery
DX: T84.020A Dislocation of internal right hip prosthesis, initial encounter (principal); Z79.82 Long term (current) use of aspirin
CPT/HCPCS: 6040; 73501; 73502-RT; 93005; 93010; 96374; 96375; 97116-GP; 97161-GP; G0378; J3360